=== PATIENT | female | born 1965 | race Caucasian/White ===

== ENCOUNTER 2016-12-03 19:54 | Emergency (ER) | payer OTHER ==
[~2016-12-03] VITALS: Ht 162.6 cm; Wt 109.1 kg
[~2016-12-03 19:54] MED LIST: LEVO125T5 PO
[2016-12-03 19:59] VITALS: BP 152/99
[2016-12-03 20:28] LABS: HEMATOCRIT 45.4 % (34.6-47.8); HEMOGLOBIN 15.4 g/dL (11.7-16.4); WHITE BLOOD COUNT 11.1 x10^3/uL (3.4-10)
[2016-12-03] MEDS ORDERED: SODIUM CHLORIDE 0.9% 1,000ML IVBOLUS ONE (20:30)
[2016-12-03] MEDS ORDERED: SODIUM CHLORIDE FLUSH 10ML SYR IVF ONE (20:30)
[2016-12-03 20:42] LABS: BLOOD UREA NITROGEN 12 mg/dL (7-18)
[2016-12-03] MEDS ORDERED: ASPI-515 PO (22:06)
== END 2016-12-03 22:41 | disposition home or self-care (01) ==
LOC: ED 22:40
DX: N93.8 Other specified abnormal uterine and vaginal bleeding (principal); N83.292 Other ovarian cyst, left side; Z98.51 Tubal ligation status
CPT/HCPCS: 36415; 76830; 80048; 82040; 84703; 85025; 96360; 99285; J7030

== ENCOUNTER 2017-01-02 05:41 | Day surgery (SDC) | payer OTHER ==
[~2017-01-02] VITALS: Ht 160 cm; Wt 110.0 kg
[~2017-01-02 05:41] MED LIST changes: +ASPI-515 PO
[2017-01-02] MEDS ORDERED: LACTATED RINGERS 1,000 ML IV SCH (06:05)
[2017-01-02 06:20] VITALS: BP 134/89
[2017-01-02 06:40] LABS: HCG UR LOT HCG7030192
[2017-01-02 06:52] LABS: HCG UR OBC PASS
[2017-01-02] MEDS ORDERED: BUPIVACAINE/PF 0.25% ONE (07:08)
[2017-01-02] MEDS ORDERED: EPINEPHRINE 1 MG/ML, 1ML ONE (07:09)
[2017-01-02] MEDS ORDERED: SILVER NITRATE STICK TP ONE (07:09)
[2017-01-02] MEDS ORDERED: MIDAZOLAM 1 MG/ML, 2ML ONE (07:32)
[2017-01-02] MEDS ORDERED: FENTANYL PF 100 MCG/2ML ONE ×2 (07:32→09:07)
[2017-01-02] MEDS ORDERED: KETOROLAC 30 MG/1 ML ONE (07:52)
[2017-01-02] MEDS ORDERED: MIDAZOLAM 1 MG/ML, 2ML IV PRN (08:30)
[2017-01-02] MEDS ORDERED: MEPERIDINE/PF 25MG/0.5ML IVPush PRN (08:30)
[2017-01-02] MEDS ORDERED: ACETAMINOPHEN 325 MG TABLET PO PRN (08:30)
[2017-01-02] MEDS ORDERED: HYDROmorphone 1 MG/ML, 1ML IV PRN (08:30)
[2017-01-02] MEDS ORDERED: EPHEDRINE 50 MG/ML, 1ML IVPush PRN (08:30)
[2017-01-02] MEDS ORDERED: ALBUTEROL SULFATE 2.5 MG/3 ML NPPB PRN (08:30)
[2017-01-02] MEDS ORDERED: OXYcodone 5 MG/5 ML ORAL.SOL UDC PO PRN (08:30)
[2017-01-02] MEDS ORDERED: METOPROLOL 1 MG/ML, 5ML IV PRN (08:30)
[2017-01-02] MEDS ORDERED: DIAZEPAM 5 MG/ML, 2ML IVPush PRN (08:30)
[2017-01-02] MEDS ORDERED: LABETALOL 5MG/ML, 20ML IV PRN (08:30)
[2017-01-02] MEDS ORDERED: HYDROcodone/APAP 7.5-325MG/15ML UDC PO PRN (08:30)
[2017-01-02] MEDS ORDERED: hydrALAzine 20 MG/ML, 1ML IV PRN (08:30)
[2017-01-02] MEDS ORDERED: ONDANSETRON 2MG/ML, 2ML IVPush PRN (08:30)
[2017-01-02] MEDS ORDERED: PROMETHAZINE 25 MG/ML, 1ML IV PRN (08:30)
[2017-01-02] MEDS ORDERED: HYDROcodone/APAP 7.5-325MG/15ML UDC ONE (09:07)
[2017-01-02] MEDS ORDERED: CEFAZOLIN 1,000 MG ONE (09:08)
[2017-01-02] MEDS ORDERED: ONDANSETRON 2MG/ML, 2ML ONE (09:08)
[2017-01-02] MEDS ORDERED: DEXAMETHASONE 4 MG/ML, 1ML ONE (09:08)
[2017-01-02] MEDS ORDERED: PROPOFOL 10 MG/ML, 20ML ONE (09:08)
[2017-01-02] MEDS: FENTANYL PF 100 MCG/2ML IV PRN ×2 (09:11→09:25)
== END 2017-01-02 13:55 ==
LOC: OUT 05:41
PROVIDERS: ATTEND Student in an Organized Health Care Education/Training Program
DX: N93.9 Abnormal uterine and vaginal bleeding, unspecified (principal); N85.8 Other specified noninflammatory disorders of uterus; N84.0 Polyp of corpus uteri; E03.9 Hypothyroidism, unspecified; Z98.51 Tubal ligation status; Z79.82 Long term (current) use of aspirin; Z98.890 Other specified postprocedural states; Z88.1 Allergy status to other antibiotic agents
CPT/HCPCS: 58558; 81025; 88305; J0171; J1100; J1885; J2250; J2405; J2704; J3010; J3490; J7120; J0690

== ENCOUNTER 2017-03-13 05:35 | Day surgery (SDC) | payer OTHER ==
[~2017-03-13] VITALS: Ht 160 cm; Wt 111.3 kg
[2017-03-13] MEDS ORDERED: LACTATED RINGERS 1,000 ML IV SCH (06:34)
[2017-03-13 06:35] VITALS: BP 130/73
[2017-03-13] MEDS ORDERED: EPINEPHRINE 1 MG/ML, 1ML ONE (06:52)
[2017-03-13] MEDS ORDERED: BUPIVACAINE/PF 0.25% ONE (06:52)
[2017-03-13 07:21] LABS: HCG UR LOT HCG7030192
[2017-03-13] MEDS ORDERED: FENTANYL PF 250 MCG/5ML ONE ×2 (07:21→09:59)
[2017-03-13] MEDS ORDERED: MIDAZOLAM 1 MG/ML, 2ML ONE (07:21)
[2017-03-13] MEDS ORDERED: NEOSTIGMINE 1 MG/ML, 10ML ONE (07:24)
[2017-03-13] MEDS ORDERED: ONDANSETRON 2MG/ML, 2ML ONE (07:24)
[2017-03-13] MEDS ORDERED: GLYCOPYRROLATE 0.2MG/1ML, 5ML ONE (07:24)
[2017-03-13] MEDS ORDERED: CEFAZOLIN 1,000 MG ONE (07:24)
[2017-03-13] MEDS ORDERED: DEXAMETHASONE 4 MG/ML, 1ML ONE (07:24)
[2017-03-13] MEDS ORDERED: PROPOFOL 10 MG/ML, 20ML ONE (07:24)
[2017-03-13] MEDS ORDERED: ROCURONIUM 10 MG/ML,10ML ONE (07:24)
[2017-03-13] MEDS ORDERED: SUCCINYLCHOLINE 20 MG/ML, 10ML ONE (07:24)
[2017-03-13 07:28] LABS: HCG UR OBC PASS
[2017-03-13] MEDS ORDERED: LIDOCAINE-MPF 2% ,5ML ONE (07:39)
[2017-03-13] MEDS ORDERED: PHENYLEPHRINE 10 MG/ML ONE (07:56)
[2017-03-13] MEDS ORDERED: PROMETHAZINE 25 MG/ML, 1ML IV PRN (08:00)
[2017-03-13] MEDS ORDERED: OXYcodone 5 MG/5 ML ORAL.SOL UDC PO PRN (08:00)
[2017-03-13] MEDS ORDERED: ACETAMINOPHEN 325 MG TABLET PO PRN (08:00)
[2017-03-13] MEDS ORDERED: HYDROcodone/APAP 7.5-325MG/15ML UDC PO PRN (08:00)
[2017-03-13] MEDS ORDERED: HYDROmorphone 1 MG/ML, 1ML IV PRN (08:00)
[2017-03-13] MEDS ORDERED: ONDANSETRON 2MG/ML, 2ML IVPush PRN (08:00)
[2017-03-13] MEDS ORDERED: BUPIVACAINE/PF-EPI 0.25% 1:200K INFIL ONE (10:14)
[2017-03-13] MEDS ORDERED: INDIGO CARMINE 0.8%, 5ML ONE (10:45)
[2017-03-13] MEDS ORDERED: FENTANYL PF 100 MCG/2ML ONE (12:22)
[2017-03-13] MEDS ORDERED: ACETAMINOPHEN 650 MG/20.3 ML UDC ONE (12:22)
[2017-03-13] MEDS ORDERED: OXYcodone 5 MG/5 ML ORAL.SOL UDC ONE (12:23)
[2017-03-13] MEDS ORDERED: ACETAMINOPHEN 325 MG TABLET ONE (12:23)
[2017-03-13] MEDS: FENTANYL PF 100 MCG/2ML IV PRN ×2 (12:33→12:50)
== END 2017-03-13 16:15 ==
LOC: OUT 05:35
PROVIDERS: ATTEND Student in an Organized Health Care Education/Training Program
DX: N93.9 Abnormal uterine and vaginal bleeding, unspecified (principal); Z79.82 Long term (current) use of aspirin; Z83.3 Family history of diabetes mellitus; Z88.2 Allergy status to sulfonamides; N83.202 Unspecified ovarian cyst, left side; Z98.890 Other specified postprocedural states; Z98.51 Tubal ligation status
CPT/HCPCS: 36415; 58552; 81025; 86850; 86900; 88307; J0171; J0330; J0690; J1100; J2250; J2370; J2405; J2704; J2710; J3010; J3490; J7120